=== PATIENT | male | born 1975 | race Caucasian/White ===

== ENCOUNTER 2017-10-18 19:17 | Emergency (ER) | payer OTHER ==
[2017-10-18 19:49] VITALS: RESP 18
--- NOTE | 2017-10-18 20:49 | EDPHY ---
H & P Stated Complaint: SKIN ABCESS BACK OF NECK, GETTING MORE SWOLLEN AND PAINFUL Time Seen by Provider: 10/18/17 20:49 HPI/ROS: HPI: This is a 42-year-old male who presents with Chief Complaint: SKIN ABSCESS BACK OF NECK, GETTING MORE SWOLLEN AND PAINFUL Location: Posterior neck Quality: Abscess Duration: Several days Signs and Symptoms: No bleeding, no radiation, no numbness, no weakness, no tingling, no incontinence, no decreased range of motion, no swelling, + pain Timing: Acute Severity: Worsening Context: Patient reports that the lesion on the left side of his neck has been there for several years but over the last few days has grown substantially and become reddened and now is very painful. He was seen by his primary care provider on Tuesday but was unable to remove at that time. Denies any jaw pain/ fevers/radiation of pain/ear pain. Modifying Factors: None Comment: ROS: see HPI Constitutional: No fever, no chills, no weight loss Eyes: No blurred vision Respiratory: No shortness of breath, no cough Cardiovascular: No chest pain Gastrointestinal: No nausea, no vomiting no diarrhea Genitourinary: No dysuria Extremities: No myalgias Neurologic: No weakness, no numbness Skin: No rashes Hematologic: No bruising, no bleeding MEDICAL/SURGICAL/SOCIAL HISTORY: Medical history: Generally healthy. Does not take any regular medications. Surgical history: Denies Social history: . CONSTITUTIONAL: Well-developed well-nourished middle-aged white male, awake and alert, no obvious distress HEENT: Atraumatic and normocephalic, PERRL, EOMI. Tympanic membranes clear. Oropharynx clear, no exudate and moist pink mucosa. Airway patent. No lymphadenopathy. No meningismus. Cardiovascular: Normal S1/S2, regular rate, regular rhythm, without murmur rub or gallop. PULMONARY/CHEST: Symmetrical and nontender. Clear to auscultation bilaterally. Good air movement. No accessory muscle usage. ABDOMEN: Soft, nondistended, nontender, no rebound, no guarding, no peritoneal signs, no masses or organomegaly. No CVAT. EXTREMITIES: 2/2 pulses, strength 5/5, no deformities, no clubbing, no cyanosis or edema. NEUROLOGICAL: no focal neuro deficits. GCS 15. SKIN: Warm and dry, 6 mm annular raised fluctuant abscess on left lateral neck; no surrounding erythema. no erythema. no rash. Good capillary refill. Source: Patient Exam Limitations: No limitations - Personal History Current Tetanus/Diphtheria Vaccine: Yes - Medical/Surgical History Hx Asthma: No Hx Chronic Respiratory Disease: No Hx Diabetes: No Hx Cardiac Disease: No Hx Renal Disease: No Hx Cirrhosis: No Hx Alcoholism: No Hx HIV/AIDS: No Hx Splenectomy or Spleen Trauma: No Other PMH: ÁNGEL - Social History Smoking Status: Never smoked Constitutional: Initial Vital Signs Temperature (C) 36.8 C 10/18/17 19:46 Heart Rate 70 10/18/17 19:46 Respiratory Rate 18 10/18/17 19:46 Blood Pressure 119/68 10/18/17 19:46 O2 Sat (%) 96 10/18/17 19:46 O2 Delivery Mode Room Air Allergies/Adverse Reactions: No Known Allergies Allergy (Unverified 10/18/17 19:46) Home Medications: Medication Instructions Recorded Cephalexin [Keflex (*)] 500 mg PO TID #21 cap 10/18/17 Sulfamethox/Tmp 800/160 mg 1 tab PO BID #14 tab 10/18/17 [Bactrim Ds] Medical Decision Making Procedures: Procedure: Abscess drainage. The patient's abscess was located on the left lateral neck. I obtained verbal consent from the patient to drain the abscess who was informed about the possibility of bleeding and pain. The abscess was incised with a scalpel and a 8 mL amount of purulent drainage was expressed. I irrigated the wound and placed some packing. The patient tolerated the procedure well. The procedure was performed by myself. ED Course/Re-evaluation: Abscess I and D; sent for wound culture; given Keflex and Bactrim PCP and dermatology follow-up No signs of otitis media/facial cellulitis/periapical abscess. This patient was seen under the supervision of my secondary supervising physician. I evaluated care for this patient independently. Differential Diagnosis: Differential diagnosis includes but is not limited to sebaceous cyst, deep neck infection, abscess, lipoma. Departure - Departure Disposition: Home, Routine, Self-Care Clinical Impression: Sebaceous cyst, Abscess of skin of neck Condition: Good Instructions: Abscess (ED) Additional Instructions: Keep the dressing dry and in place for 48 hours. After 48 hours, you may remove the dressing; wash the site daily with mild soap and water; then pat dry; apply topical antibiotic ointment and clean sterile dressing until fully healed. Take Tylenol 650 mg every 4 hours and/or Ibuprofen 600 mg every 8 hours with food as needed for pain. Follow-up with PCP/Dermatology for repeat evaluation and to determine if excision is needed. Referrals: Katie Samson MD [Primary Care Provider] - As per Instructions Prescriptions: Cephalexin [Keflex (*)] 500 mg PO TID #21 cap Sulfamethox/Tmp 800/160 mg [Bactrim Ds] 1 tab PO BID #14 tab
[2017-10-18] MEDS ORDERED: SULFAMETHOX/TMP 800/160 MG 1 TAB PO ONE (21:09)
[2017-10-18] MEDS ORDERED: CEPHALEXIN 500 MG CAP PO ONE (21:09)
[2017-10-18] MEDS ORDERED: IBUPROFEN 600 MG TAB PO ONE ×2 (21:26→21:27)
[2017-10-18] MEDS ORDERED: CEPHALEXIN 500MG PREPACK#4 BTL TAKEHOME ONE ×2 (21:27→21:28)
[2017-10-18 21:31] VITALS: BP 145/89; PULSE 80; TEMP 98.6; O2SAT 97
== END 2017-10-18 21:44 | disposition home or self-care (01) ==
PROC: 0H94XZZ Drainage of Neck Skin, External Approach (ICD-10-PCS; principal; 2017-10-18)
DX: L02.11 Cutaneous abscess of neck (principal); L72.3 Sebaceous cyst